=== PATIENT | female | born 1940 | race Caucasian/White ===

== ENCOUNTER 2022-07-03 15:25 | Emergency (ER) | payer OTHER ==
[2022-07-03 16:20] LABS: HEMOGLOBIN 12.4 gm/dl (12.3-15.3); RED BLOOD COUNT 4.4 M/UL (4.00-5.10); WHITE BLOOD COUNT 6.8 K/UL (4.5-11.0)
[2022-07-03 16:48] LABS: BUN/CREATININE RATIO 17 (0-10)
[2022-07-03] MEDS ORDERED: DOXYCYCLINE HY100 MG PO (17:13)
[2022-07-03] MEDS ORDERED: LASIX20 MG PO (17:13)
== END 2022-07-03 17:41 | disposition home or self-care (01) ==
LOC: ER1 15:25
PROVIDERS: Family Medicine
DX: J18.9 Pneumonia, unspecified organism (principal); E11.9 Type 2 diabetes mellitus without complications; F03.90 Unspecified dementia, unspecified severity, without behavioral disturbance, psychotic disturbance, mood disturbance, and anxiety; I10 Essential (primary) hypertension; Z88.2 Allergy status to sulfonamides; Z79.899 Other long term (current) drug therapy; Z79.82 Long term (current) use of aspirin; Z20.822 Contact with and (suspected) exposure to COVID-19
CPT/HCPCS: 71045; 80053; 82550; 82553; 83605; 83880; 84484; 85025; 85610; 93005; 99285; U0002

== ENCOUNTER → 2022-07-26 | Outpatient (CLI) | payer OTHER ==
[~2022-07-26] MED LIST: DOXYCYCLINE HY100 MG PO; LASIX20 MG PO
== END ==
LOC: RAD 17:23
DX: Z87.891 Personal history of nicotine dependence (principal); J90 Pleural effusion, not elsewhere classified; K44.9 Diaphragmatic hernia without obstruction or gangrene
CPT/HCPCS: 71046